=== PATIENT | female | born 1970 | race Caucasian/White ===

== ENCOUNTER 2016-11-08 04:20 | Emergency (ER) | payer BC ==
[~2016-11-08] VITALS: Ht 157.5 cm; Wt 138.3 kg
[~2016-11-08 04:20] MED LIST: IBU-8800 MG PO
--- NOTE | 2016-11-08 04:46 | Emergency Room Report ---
History of Present Illness Time Seen by [id number] Presenting Problem in Triage Pt arrived:Walked Presenting Problem:PT. COMPLAINING OF PAIN BEHIND THE RIGHT KNEE AND RIGHT ANKLE /HEEL PAIN. PT STATES IT IS HARD FOR HER TO LIFT HER LEG. 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 N Clinical Suspician of Infection? N Mental Status: 1 - Regular (Normal Baseline) Sepsis Risk:Low Sepsis Risk Have you (or family members/close friends) recently traveled outside the [place]? N If Yes, where/when: Have you had exposure to infectious disease within the past month? N TB? Other? Specify: Source patient, RN notes reviewed, old records Exam Limitations no limitations Comment pt with rt knee pain w/o trauma over the last few days worse with wt bearing and flexion - no fever or other c/o Cardiac Chest Pain Chest pain indicative of cardiac No Timing/Duration this morning Severity moderate History Medical History General CAD? No Angina: No [place]: No Hypertension? No Hyperlipidemia? No CHF? No DVT? No PE? No COPD? No Asthma? No Anemia? No GERD? No Gastric ulcers? No GI Bleed? No Hernia? No Thyroid Problems? No Hypothyroidism? No CVA? No Seizures? No Diabetes? No Renal Insuffiency? No End Stage Renal Disease? No UTI? No Stones? No BPH? No GB Disease: No Nephritic Syndrome? No Asplenia? No Hepatitis? No Sickle Cell Disease? No Arthritis? No Migraines? No Cataracts? No Glaucoma? No MRSA? No HIV? No TB? No Anxiety? No Depression? No Cancer? No More? 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 Respiratory denies cough, denies shortness of breath, denies wheezing Cardiovascular denies chest pain, denies syncope Gastrointestinal see HPI, abdominal pain, nausea, vomiting Genitourinary denies: dysuria, frequency, hesitancy, hematuria. Musculoskeletal denies back pain, denies joint pain, denies joint swelling, denies neck pain Skin denies rash Psychiatric/Neurological denies headache, denies seizure Physical Exam Vital Signs Vital Signs Date Time Temp Pulse Resp B/P Pulse O2 O2 Flow FiO2 Ox Delivery Rate 11/08 0428 97.7 80 18 127/79 98 - WBC >12,000 or <4,000 or 10% bands? 2 or more SIRS Criteria Met? B/P:127/79 MAP:95 Creatinine >2.0? UA output<0.5ml/kg/hr for 2 hrs? Platelet count >100,000? Lactate >2.0mmol/1? INR >1.2 or PTT > than 60 sec? Evidence of Organ Dysfunction? Provider documented clinical suspician of infection? N Sepsis Criteria Count: 0 Sepsis Risk: Low Sepsis Risk General Appearance no apparent distress Eye Exam - bilateral eye PERRL, bilateral eye EOMI Ear, Nose, Throat normal ENT inspection Neck supple Respiratory Status No: respiratory distress. 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 No Results/Orders Orders Procedure Date/time Status KNEE-3 VIEWS-RT 11/08 0441 Active XRAY/CT/US XRAY/CT/US XRAY knee XR interpretation by reviewed by me Xray Results no fracture seen (djd), abnormal Departure Departure Time of Disposition 0511 Disposition DC Home or Self Care(routine) Clinical Impression Primary Impression: Arthralgia Qualifiers: Joint pain location: knee Laterality: right Qualified Code: M25.561 - Pain in right knee Secondary Impressions: DJD (degenerative joint disease) Qualifiers: Osteoarthritis location: knee Osteoarthritis type: unspecified Laterality: right Qualified Code: M17.11 - Unilateral primary osteoarthritis, right knee Condition STABLE Referrals Kenneth Barton MD Patient Instructions DI for Joint Pain Additional Instructions use meds and see pcp or ortho for follow up Discharge Counseling Counseled pt/family regarding diagnosis, test results, medications/RX, follow up needs Prescriptions Current Visit Scripts Prednisone (Prednisone 20MG) 20 MG PO BID #10 TAB ED Critical Care Critical Care No at 0558
--- NOTE | 2016-11-08 04:46 | Emergency Room Report ---
History of Present Illness Time Seen by 0430 Presenting Problem in Triage Pt arrived:Walked Presenting Problem:PT. COMPLAINING OF PAIN BEHIND THE RIGHT KNEE AND RIGHT ANKLE /HEEL PAIN. PT STATES IT IS HARD FOR HER TO LIFT HER LEG. 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 N Clinical Suspician of Infection? N Mental Status: 1 - Regular (Normal Baseline) Sepsis Risk:Low Sepsis Risk Have you (or family members/close friends) recently traveled outside the [place]? N If Yes, where/when: Have you had exposure to infectious disease within the past month? N TB? Other? Specify: Source patient, RN notes reviewed, old records Exam Limitations no limitations Comment pt with rt knee pain w/o trauma over the last few days worse with wt bearing and flexion - no fever or other c/o Cardiac Chest Pain Chest pain indicative of cardiac No Timing/Duration this morning Severity moderate History Medical History General CAD? No Angina: No [place]: No Hypertension? No Hyperlipidemia? No CHF? No DVT? No PE? No COPD? No Asthma? No Anemia? No GERD? No Gastric ulcers? No GI Bleed? No Hernia? No Thyroid Problems? No Hypothyroidism? No CVA? No Seizures? No Diabetes? No Renal Insuffiency? No End Stage Renal Disease? No UTI? No Stones? No BPH? No GB Disease: No Nephritic Syndrome? No Asplenia? No Hepatitis? No Sickle Cell Disease? No Arthritis? No Migraines? No Cataracts? No Glaucoma? No MRSA? No HIV? No TB? No Anxiety? No Depression? No Cancer? No More? 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 Respiratory denies cough, denies shortness of breath, denies wheezing Cardiovascular denies chest pain, denies syncope Gastrointestinal see HPI, abdominal pain, nausea, vomiting Genitourinary denies: dysuria, frequency, hesitancy, hematuria. Musculoskeletal denies back pain, denies joint pain, denies joint swelling, denies neck pain Skin denies rash Psychiatric/Neurological denies headache, denies seizure Physical Exam Vital Signs Vital Signs Date Time Temp Pulse Resp B/P Pulse O2 O2 Flow FiO2 Ox Delivery Rate 11/08 0428 97.7 80 18 127/79 98 - WBC >12,000 or <4,000 or 10% bands? 2 or more SIRS Criteria Met? B/P:127/79 MAP:95 Creatinine >2.0? UA output<0.5ml/kg/hr for 2 hrs? Platelet count >100,000? Lactate >2.0mmol/1? INR >1.2 or PTT > than 60 sec? Evidence of Organ Dysfunction? Provider documented clinical suspician of infection? N Sepsis Criteria Count: 0 Sepsis Risk: Low Sepsis Risk General Appearance no apparent distress Eye Exam - bilateral eye PERRL, bilateral eye EOMI Ear, Nose, Throat normal ENT inspection Neck supple Respiratory Status No: respiratory distress. 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 No Results/Orders Orders Procedure Date/time Status KNEE-3 VIEWS-RT 11/08 0441 Active XRAY/CT/US XRAY/CT/US XRAY knee XR interpretation by reviewed by me Xray Results no fracture seen (djd), abnormal Departure Departure Time of Disposition 0511 Disposition DC Home or Self Care(routine) Clinical Impression Primary Impression: Arthralgia Qualifiers: Joint pain location: knee Laterality: right Qualified Code: M25.561 - Pain in right knee Secondary Impressions: DJD (degenerative joint disease) Qualifiers: Osteoarthritis location: knee Osteoarthritis type: unspecified Laterality: right Qualified Code: M17.11 - Unilateral primary osteoarthritis, right knee Condition STABLE Referrals Kenneth Barton MD Patient Instructions DI for Joint Pain Additional Instructions use meds and see pcp or ortho for follow up Discharge Counseling Counseled pt/family regarding diagnosis, test results, medications/RX, follow up needs Prescriptions Current Visit Scripts Prednisone (Prednisone 20MG) 20 MG PO BID #10 TAB ED Critical Care Critical Care No at 0504
[2016-11-08] MEDS ORDERED: PREDNISONE 20MG20 MG PO (05:13)
[2016-11-08 05:29] VITALS: BP 127/79
--- NOTE | 2016-11-08 07:04 | RADIOLOGY REPORT PS360 ---
KNEE-3 VIEWS-RT HISTORY: Right knee pain pain ORDERING PHYSICIAN: Robert Hudson MD PATIENT AGE: 46 years COMPARISON: None FINDINGS: Moderate to severe osteoarthritic changes involve the lateral compartment and patellofemoral joint. A faint calcific density is present along the medial femoral condyle consistent with a Kimberly Stieda lesion consistent with prior medial collateral ligament injury. IMPRESSION: 1. Osteoarthritis. 2. Kimberly Stieda lesion consistent with prior medial collateral ligament injury.
== END 2016-11-08 05:30 | disposition home or self-care (01) ==
LOC: ER 04:20
DX: M17.11 Unilateral primary osteoarthritis, right knee (principal)